=== PATIENT | female | born 1945 | race American Indian/Alaskan Native ===

== ENCOUNTER 2016-08-17 10:24 | Outpatient (CLI) | payer MEDICARE, OTHER ==
--- NOTE | 2016-08-17 12:51 | XRay Report ---
RIGHT KNEE RADIOGRAPHS INDICATION: Knee pain. COMPARISON: Correlated to accompanying left knee radiographs. FINDINGS: AP, lateral and oblique right knee radiographs, 4 images demonstrate intact gross bony articulation. Possible osteopenia. Tricompartmental osteoarthritic changes with degenerative spurring again noted, though overall lesser than the left. Slight suprapatellar soft tissue swelling or effusion possible. Few small round heterogeneous calcifications in the popliteal region measure up to approximately 1 cm. 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 Please correlate. Thank you for the opportunity to participate in this patient's care.
--- NOTE | 2016-08-17 12:52 | XRay Report ---
LEFT KNEE RADIOGRAPHS INDICATION: Pain. COMPARISON: None similar at this institution. FINDINGS: AP, lateral and oblique left knee radiographs, 4 images demonstrate tricompartmental osteoarthritic changes with joint space narrowing, suspected involving the patellofemoral, medial and lateral compartments, in the order of severity. No large suprapatellar effusion. 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 Diffuse degenerative spurring also noted. Faint horizontal density may also project within the lateral compartment/possible CPPD. Intact gross bony articulation. Possible osteopenia. 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 Please correlate. Thank you for the opportunity to participate in this patient's care.
== END 2016-08-17 10:25 | disposition home or self-care (01) ==
LOC: EDBD 10:24 → SPVIMAG 10:24
PROVIDERS: ATTEND Internal Medicine
DX: M17.12 Unilateral primary osteoarthritis, left knee (principal); M11.262 Other chondrocalcinosis, left knee